=== PATIENT | male | born 1970 | race Caucasian/White ===

== ENCOUNTER → 2024-02-23 | Outpatient (CLI) | payer BC, SELFPAY | END | disposition home or self-care (01) | LOC: SLDO 15:36 | PROVIDERS: PCP Family Medicine; Referring Provider Physician Assistant; Visit Provider Physician Assistant | DX: S60.862A Insect bite (nonvenomous) of left wrist, initial encounter (principal); W57.XXXA Bitten or stung by nonvenomous insect and other nonvenomous arthropods, initial encounter | CPT/HCPCS: 87070; 87205 ==

== ENCOUNTER → 2024-05-13 | Outpatient (CLI) | payer BC, SELFPAY ==
[2024-05-13 09:04] LABS: Alanine Aminotransferase 23 U/L (10-49); Albumin, Serum 4.5 gm/dL (3.5-5.0); Albumin/Globulin Ratio 2.3 (1.2-2.2); Alkaline Phosphatase 65 U/L (46-116); Anion Gap 10 (7-16); Aspartate Amino Transferase 16 U/L (0-34); BUN/Creatinine Ratio 28 Ratio (12-20); Bilirubin,Total 0.4 mg/dL (0.3-1.2); Blood Urea Nitrogen 25 mg/dL (9-23); Calcium 9.5 mg/dL (8.3-10.6); Calcium (Corrected) 9.5 mg/dL (8.5-10.1); Carbon Dioxide 24.2 mMol/L (20.0-31.0); Cardiac Risk Estimate 4.4 RATIO (4.0-6.7); Chloride 110 mMol/L (98-107); Cholesterol 202 mg/dL (132-200); Creatinine (Component) 0.9 mg/dL (0.6-1.3); Glucose 87 mg/dL (74-106); HDL Cholesterol 46 mg/dL (40-60); LDL Cholesterol,Calculated 120 mg/dL (0-130); Osmolality,Calculated 290 (275-295); Potassium 4.3 mMol/L (3.4-5.1); Sodium 144 mMol/L (136-145); Total Protein 6.5 gm/dL (5.7-8.2); Triglycerides 179 mg/dL (30-150); eGFR > 60 See Note
[2024-05-13 09:20] LABS: Ferritin 365 ng/mL (10.5-307.3); Iron 167 mcg/dL (65-175)
== END | disposition home or self-care (01) ==
LOC: COPL 07:21
PROVIDERS: PCP Physician Assistant; Referring Provider Physician Assistant; Visit Provider Physician Assistant
DX: I10 Essential (primary) hypertension (principal); E78.5 Hyperlipidemia, unspecified; Z83.49 Family history of other endocrine, nutritional and metabolic diseases
CPT/HCPCS: 36415; 80053; 80061; 82728; 83540

== ENCOUNTER → 2024-09-07 | Outpatient (CLI) | payer BC, SELFPAY ==
[2024-09-07 08:06] LABS: Collection Type, Urine Clean Catch
[2024-09-07 08:41] LABS: Basophils % (Auto) 1 % (0-2.5); Eosinophils # (Auto) 0.3 Thou/mm3 (0.0-0.5); Eosinophils % (Auto) 4 % (0-10); Hematocrit 45.2 % (41.0-53.0); Hemoglobin 15.3 g/dL (13.5-16.0); Immature Granulocytes % (Auto) 0 % (0-0); Immature Granulocytes Auto 0.01 Thou/mm3 (0.00-0.00); Lymphocytes # (Auto) 0.8 Thou/mm3 (1.0-4.8); Lymphocytes % (Auto) 14 % (10-50); Mean Corpuscular HGB Conc 33.8 g/dl (31.0-37.0); Mean Corpuscular Hemoglobin 32.8 pg (25.0-35.0); Mean Corpuscular Volume 97 fL (80-100); Monocytes # (Auto) 0.5 Thou/mm3 (0.0-0.8); Monocytes % (Auto) 8 % (0-12); Neutrophils # (Auto) 4.4 Thou/mm3 (1.8-7.7); Neutrophils % (Auto) 73 % (37-80); Nucleated Red Blood Cell % 0 /100 WBC (0); Platelet Count 345 Thou/mm3 (140-440); RDW Standard Deviation 46.5 fL (35.1-43.9); Red Blood Count 4.67 Miln/mm3 (4.50-5.90); White Blood Count 6.1 Thou/mm3 (3.8-10.6)
[2024-09-07 09:00] LABS: Alanine Aminotransferase 29 U/L (10-49); Albumin, Serum 4.5 gm/dL (3.5-5.0); Albumin/Globulin Ratio 2.3 (1.2-2.2); Alkaline Phosphatase 58 U/L (46-116); Anion Gap 9 (7-16); Aspartate Amino Transferase 35 U/L (0-34); BUN/Creatinine Ratio 16 Ratio (12-20); Bilirubin,Total 0.4 mg/dL (0.3-1.2); Blood Urea Nitrogen 14 mg/dL (9-23); Cardiac Risk Estimate 4.6 RATIO (4.0-6.7); Chloride 112 mMol/L (98-107); Cholesterol 206 mg/dL (132-200); Creatinine (Component) 0.9 mg/dL (0.6-1.3); Glucose 101 mg/dL (74-106); HDL Cholesterol 45 mg/dL (40-60); LDL Cholesterol,Calculated 127 mg/dL (0-130); Osmolality,Calculated 285 (275-295); Potassium 3.9 mMol/L (3.4-5.1); Sodium 143 mMol/L (136-145); Total Protein 6.5 gm/dL (5.7-8.2); Triglycerides 168 mg/dL (30-150); Vitamin B12 528 pg/mL (211-911); Vitamin D 25 Hydroxy Total 18.9 ng/mL (7.3-40.2); eGFR > 60 See Note
[2024-09-07 09:09] LABS: Ferritin 378 ng/mL (10.5-307.3); Iron 181 mcg/dL (65-175); Prostate Specific Antigen 0.15 ng/mL (0-4.00)
[2024-09-07 09:12] LABS: Bilirubin,Urine Negative (Negative); Blood,Urine Trace (Negative); Clarity,Urine Clear (Clear/Hazy); Color,Urine Yellow (Lt Yel-Yel); Culture Indicated,Urine Not Indicated; Glucose, Urine Negative (Negative); Ketones,Urine Negative (Negative); Leukocyte Esterase,Urine Negative (Negative); Nitrite,Urine Negative (Negative); Protein,Urine Negative (Neg - Trace); RBC,Urine 3 /hpf (0-3); Squamous Epithelial Cell,Urine < 1 /hpf (0-5); Urobilinogen,Urine Negative mg/dL (0.0-1.0); WBC,Urine 1 /hpf (0-5)
== END | disposition home or self-care (01) ==
LOC: COPL 06:56
PROVIDERS: PCP Family Medicine; Referring Provider Physician Assistant; Visit Provider Physician Assistant
DX: E78.5 Hyperlipidemia, unspecified (principal); E55.9 Vitamin D deficiency, unspecified; R53.83 Other fatigue; Z12.5 Encounter for screening for malignant neoplasm of prostate
CPT/HCPCS: 36415; 80053; 80061; 81001; 82306; 82607; 82728; 83540; 84153; 85025

== ENCOUNTER 2025-01-23 08:02 | Outpatient (RCR) | payer BC, SELFPAY | END 2025-02-12 23:59 | disposition home or self-care (01) | LOC: SCTC 08:02 | PROVIDERS: PCP Physician Assistant; Referring Provider Physician Assistant; Visit Provider Nurse Practitioner Family | DX: E83.119 Hemochromatosis, unspecified (principal); I10 Essential (primary) hypertension; G89.29 Other chronic pain; M54.9 Dorsalgia, unspecified | CPT/HCPCS: 99214; G0463 ==

== ENCOUNTER → 2025-01-23 | Outpatient (CLI) | payer BC, SELFPAY ==
[2025-01-23 10:04] LABS: Misc Send Out* See Sep Rpt
[2025-01-23 10:47] LABS: Basophils # (Auto) 0.0 Thou/mm3 (0.0-0.2); Basophils % (Auto) 0 % (0-2.5); Eosinophils # (Auto) 0.3 Thou/mm3 (0.0-0.5); Eosinophils % (Auto) 3 % (0-10); Hematocrit 45.1 % (41.0-53.0); Hemoglobin 15.6 g/dL (13.5-16.0); Immature Granulocytes Auto 0.05 Thou/mm3 (0.00-0.00); Immature Reticulocyte Fraction 11.6 % (2.3-13.4); Lymphocytes # (Auto) 1.3 Thou/mm3 (1.0-4.8); Lymphocytes % (Auto) 16 % (10-50); Mean Corpuscular HGB Conc 34.6 g/dl (31.0-37.0); Mean Corpuscular Hemoglobin 32.6 pg (25.0-35.0); Mean Corpuscular Volume 94 fL (80-100); Monocytes # (Auto) 0.8 Thou/mm3 (0.0-0.8); Monocytes % (Auto) 10 % (0-12); Neutrophils # (Auto) 5.7 Thou/mm3 (1.8-7.7); Neutrophils % (Auto) 70 % (37-80); Nucleated Red Blood Cell # 0.00 Thou/mm3 (0.00-0.00); Nucleated Red Blood Cell % 0 /100 WBC (0); Platelet Count 404 Thou/mm3 (140-440); RDW Standard Deviation 43.7 fL (35.1-43.9); Red Blood Count 4.79 Miln/mm3 (4.50-5.90); Reticulocyte % (Auto) 1.7 % (0.5-1.5); Reticulocyte Absolute Auto 81.0 Biln/L (25.0-75.0); Reticulocyte Hgb Content 39.8 pg (28.0-35.0); White Blood Count 8.1 Thou/mm3 (3.8-10.6)
[2025-01-23 11:15] LABS: Ferritin 325 ng/mL (10.5-307.3); Iron 230 mcg/dL (65-175); Percent Iron Saturation 74 % (20-55); Total Iron Binding Capacity 307 mcg/dL (250-425); Unsaturated Iron Binding 77 (225-295)
[2025-01-23 11:16] LABS: Folate 16.54 ng/mL (>5.38); Vitamin B12 574 pg/mL (211-911)
[2025-01-23 11:20] LABS: Alanine Aminotransferase 32 U/L (10-49); Albumin, Serum 4.6 gm/dL (3.5-5.0); Albumin/Globulin Ratio 2.6 (1.2-2.2); Alkaline Phosphatase 68 U/L (46-116); Anion Gap 8 (7-16); Aspartate Amino Transferase 29 U/L (0-34); BUN/Creatinine Ratio 16 Ratio (12-20); Bilirubin,Total 0.3 mg/dL (0.3-1.2); Blood Urea Nitrogen 14 mg/dL (9-23); Calcium 9.6 mg/dL (8.3-10.6); Calcium (Corrected) 9.6 mg/dL (8.5-10.1); Carbon Dioxide 28.0 mMol/L (20.0-31.0); Chloride 107 mMol/L (98-107); Creatinine (Component) 0.9 mg/dL (0.6-1.3); Globulin 1.8 gm/dL (2.3-3.5); Glucose 90 mg/dL (74-106); Osmolality,Calculated 285 (275-295); Potassium 4.2 mMol/L (3.4-5.1); Sodium 143 mMol/L (136-145); Total Protein 6.4 gm/dL (5.7-8.2); eGFR > 60 See Note
== END | disposition home or self-care (01) ==
LOC: SCTO 09:38
PROVIDERS: PCP Family Medicine; Referring Provider Nurse Practitioner Family; Visit Provider Nurse Practitioner Family
DX: E83.119 Hemochromatosis, unspecified (principal)
CPT/HCPCS: 36415; 80053; 81256; 82607; 82728; 82746; 83540; 83550; 85025; 85046

== ENCOUNTER → 2025-02-22 | Outpatient (CLI) | payer BC, SELFPAY ==
[2025-02-22 13:34] LABS: Misc Send Out* See Sep Rpt
[2025-02-22 14:17] LABS: Basophils # (Auto) 0.1 Thou/mm3 (0.0-0.2); Basophils % (Auto) 1 % (0-2.5); Eosinophils # (Auto) 0.2 Thou/mm3 (0.0-0.5); Eosinophils % (Auto) 2 % (0-10); Hematocrit 42.3 % (41.0-53.0); Hemoglobin 14.5 g/dL (13.5-16.0); Immature Granulocytes Auto 0.04 Thou/mm3 (0.00-0.00); Immature Reticulocyte Fraction 14.5 % (2.3-13.4); Lymphocytes # (Auto) 1.2 Thou/mm3 (1.0-4.8); Lymphocytes % (Auto) 14 % (10-50); Mean Corpuscular HGB Conc 34.3 g/dl (31.0-37.0); Mean Corpuscular Hemoglobin 33.3 pg (25.0-35.0); Mean Corpuscular Volume 97 fL (80-100); Monocytes # (Auto) 0.8 Thou/mm3 (0.0-0.8); Monocytes % (Auto) 9 % (0-12); Neutrophils # (Auto) 6.3 Thou/mm3 (1.8-7.7); Neutrophils % (Auto) 74 % (37-80); Nucleated Red Blood Cell # 0.00 Thou/mm3 (0.00-0.00); Nucleated Red Blood Cell % 0 /100 WBC (0); Platelet Count 419 Thou/mm3 (140-440); RDW Standard Deviation 45.9 fL (35.1-43.9); Red Blood Count 4.35 Miln/mm3 (4.50-5.90); Reticulocyte % (Auto) 2.2 % (0.5-1.5); Reticulocyte Absolute Auto 96.6 Biln/L (25.0-75.0); Reticulocyte Hgb Content 35.7 pg (28.0-35.0); White Blood Count 8.6 Thou/mm3 (3.8-10.6)
[2025-02-22 14:30] LABS: Alanine Aminotransferase 27 U/L (10-49); Albumin, Serum 4.9 gm/dL (3.5-5.0); Albumin/Globulin Ratio 2.2 (1.2-2.2); Alkaline Phosphatase 71 U/L (46-116); Anion Gap 8 (7-16); Aspartate Amino Transferase 29 U/L (0-34); BUN/Creatinine Ratio 21 Ratio (12-20); Bilirubin,Total 0.3 mg/dL (0.3-1.2); Blood Urea Nitrogen 21 mg/dL (9-23); Calcium 9.4 mg/dL (8.3-10.6); Calcium (Corrected) 9.4 mg/dL (8.5-10.1); Carbon Dioxide 30.3 mMol/L (20.0-31.0); Chloride 104 mMol/L (98-107); Creatinine (Component) 1.0 mg/dL (0.6-1.3); Globulin 2.2 gm/dL (2.3-3.5); Glucose 99 mg/dL (74-106); Osmolality,Calculated 286 (275-295); Potassium 4.5 mMol/L (3.4-5.1); Sodium 142 mMol/L (136-145); Total Protein 7.1 gm/dL (5.7-8.2); eGFR > 60 See Note
[2025-02-22 14:33] LABS: Ferritin 239 ng/mL (10.5-307.3); Iron 140 mcg/dL (65-175); Percent Iron Saturation 54 % (20-55); Total Iron Binding Capacity 255 mcg/dL (250-425); Unsaturated Iron Binding 115 (225-295)
[2025-02-22 14:34] LABS: AFP Non-Pregnant 3.10 ng/mL (<8.10); Folate 14.11 ng/mL (>5.38); Vitamin B12 681 pg/mL (211-911)
== END | disposition home or self-care (01) ==
PROVIDERS: PCP Family Medicine; Referring Provider Nurse Practitioner Family; Visit Provider Nurse Practitioner Family
DX: E83.119 Hemochromatosis, unspecified (principal)
CPT/HCPCS: 36415; 80053; 81256; 82105; 82607; 82728; 82746; 83540; 83550; 85025; 85046

== ENCOUNTER 2025-02-23 09:27 | Outpatient (RCR) | payer BC, SELFPAY ==
[2025-02-16 15:07] LABS: Basophils # (Auto) 0.0 Thou/mm3 (0.0-0.2); Basophils % (Auto) 0 % (0-2.5); Eosinophils # (Auto) 0.2 Thou/mm3 (0.0-0.5); Eosinophils % (Auto) 3 % (0-10); Hematocrit 42.6 % (41.0-53.0); Hemoglobin 14.6 g/dL (13.5-16.0); Immature Granulocytes Auto 0.02 Thou/mm3 (0.00-0.00); Lymphocytes # (Auto) 1.4 Thou/mm3 (1.0-4.8); Lymphocytes % (Auto) 19 % (10-50); Mean Corpuscular HGB Conc 34.3 g/dl (31.0-37.0); Mean Corpuscular Hemoglobin 32.6 pg (25.0-35.0); Mean Corpuscular Volume 95 fL (80-100); Monocytes # (Auto) 0.8 Thou/mm3 (0.0-0.8); Monocytes % (Auto) 11 % (0-12); Neutrophils # (Auto) 4.9 Thou/mm3 (1.8-7.7); Neutrophils % (Auto) 67 % (37-80); Nucleated Red Blood Cell # 0.00 Thou/mm3 (0.00-0.00); Nucleated Red Blood Cell % 0 /100 WBC (0); Platelet Count 331 Thou/mm3 (140-440); RDW Standard Deviation 43.8 fL (35.1-43.9); Red Blood Count 4.48 Miln/mm3 (4.50-5.90); White Blood Count 7.4 Thou/mm3 (3.8-10.6)
[2025-02-16 16:00] LABS: Ferritin 269 ng/mL (10.5-307.3)
== END 2025-03-15 23:59 | disposition home or self-care (01) ==
LOC: SCTC 09:27
PROVIDERS: Internal Medicine Hematology & Oncology; PCP Family Medicine; Referring Provider Family Medicine; Visit Provider Nurse Practitioner Family
DX: E83.119 Hemochromatosis, unspecified (principal); G89.29 Other chronic pain; M54.9 Dorsalgia, unspecified; I10 Essential (primary) hypertension
CPT/HCPCS: 82728; 85025; 99195; 99212; G0463